=== PATIENT | female | born 1945 | race Caucasian/White ===

== ENCOUNTER 2017-04-18 11:21 | Emergency (ER) | payer OTHER ==
[2017-04-18 11:26] VITALS: O2SAT 95
--- NOTE | 2017-04-18 11:59 | EDPHY ---
HPI/HX/ROS/PE/MDM Narrative: CHIEF COMPLAINT: "I passed out in my kitchen in the middle of the night and banged my head on the loss prevention agent" HPI: The patient is a 71 y/o female arriving with her for evaluation of a syncopal event early this morning. She has been ill for the last week with a "spasmodic" productive cough and is sleeping poorly. She was briefly evaluated for this and had a negative flu swab. She was up early this morning and was cleaning the kitchen when she began to feel faint. She tried to sit down, but lost consciousness and woke up on the floor. She then crawled down the hallway to her and got back into bed. She developed cold sweat while lying in bed, but was able to fall back asleep. When she awoke this morning she saw blood on her pillow and felt a cut on her head so she went to urgent care, which then referred her here. She denies headache, neck or back pain, weakness, paresthesias, or other complaints. She has a history of vasovagal syncopes in the past and says this episode felt exactly the same. She takes a daily baby aspirin and denies cardiac disease or arrhythmia history. REVIEW OF SYSTEMS: Aside from elements discussed in the HPI, a comprehensive 10-point review of systems was reviewed and is negative. PMH: 1. Hypertension 2. Hyperlipidemia 3. Vasovagal syncope SOCIAL HISTORY: Lives at home with , who is at bedside. PHYSICAL EXAM: General:Patient is alert, in no acute distress. Head: 2cm laceration to left occiput with dried blood. ENT:Eyes are normal to inspection. ENT inspection normal. Neck: Normal inspection. Full range of motion. Respiratory:No respiratory distress. Breath sounds normal bilaterally. Cardiovascular: Regular rate and rhythm. Strong peripheral pulses. Normal cap refill. Abdomen:The abdomen is nontender to palpation. There are no peritoneal signs. Back: Normal to inspection. No tenderness to palpation. Skin: Normal color. No rash. Warm and dry. Extremities: Normal appearance. Full range of motion. Neuro: Oriented x3. Normal motor function. Normal sensory function. ED Course: This is a well-appearing 71 y/o female who presents for evaluation of a syncopal event early this morning causing head strike and scalp laceration. She has a 2cm occipital laceration and nonfocal neuro exam. She takes an 81mg aspirin daily, but no anticoagulants. Due to age and loss of consciousness with head trauma, plan for head CT to rule out acute intracranial process. Plan for IV, labs, EKG for standard syncope evaluation, and wound care. The 12 lead EKG was interpreted by myself. Sinus mechanism. See hard copy and/ or "tracemaster" electronic copy for interpretation. Head CT negative for acute process. Procedure: Laceration repair. Verbal consent was obtained from the patient. The linear 2cm laceration on the right occiput was cleaned with standard ED protocol. There were no deep structures involved. The wound was repaired with Dermabond. The wound repair was simple. The procedure was performed by myself, Sukumar. Patient has been coughing frequently for a while, which is causing her some difficulty sleeping. Offered chest x-ray to evaluate this, which she agreed to. Chest x-ray is negative. Reassessed patient and discussed work up with her. She is comfortable being discharged home. Standard care and follow up instructions discussed. Return precautions given. MDM: This is an elderly patient who presents after syncopal episode last night resulting in head injury. Thankfully, CT head is negative for skull fracture or intracranial bleed. Workup is negative for obvious etiology of syncope-there is no evidence of arrhythmia or acute coronary syndrome-I suspect that given the history of vasovagal syncope which patient states presented very similar to this, that this is the likely etiology. Patient is comfortable with plan to go home. She was offered admission but declines. - Data Points Imaging Results: Imaging Impressions Head CT 04/18/17 12:01 Impression: Negative noncontrast CT of the head with no intracranial posttraumatic sequela identified. Results called and discussed with Fabrizio Patino MD on 04/18/2017 at 12:40 Imaging: Discussed imaging studies w/ score caller Radiologist, I viewed and interpreted images myself Laboratory Results: Laboratory Results 04/18/17 11:55 04/18/17 11:55 04/18/17 04/18/17 11:55 11:55 WBC 5.05 10^3/uL 10^3/uL (3.80-9.50) RBC 3.93 10^6/uL L 10^6/uL (4.18-5.33) Hgb 13.2 g/dL g/dL (12.6-16.3) Hct 38.2 % % (38.0-47.0) MCV 97.2 fL fL (81.5-99.8) MCH 33.6 pg pg (27.9-34.1) MCHC 34.6 g/dL g/dL (32.4-36.7) RDW 12.4 % % (11.5-15.2) Plt Count 165 10^3/uL 10^3/uL (150-400) MPV 9.5 fL fL (8.7-11.7) Neut % (Auto) 67.5 % % (39.3-74.2) Lymph % (Auto) 20.4 % % (15.0-45.0) [place] % (Auto) 10.9 % % (4.5-13.0) Eos % (Auto) 0.6 % % (0.6-7.6) Baso % (Auto) 0.4 % % (0.3-1.7) Nucleat RBC Rel Count 0.0 % % (0.0-0.2) Absolute Neuts (auto) 3.41 10^3/uL 10^3/uL (1.70-6.50) Absolute Lymphs (auto) 1.03 10^3/uL 10^3/uL (1.00-3.00) Absolute Monos (auto) 0.55 10^3/uL 10^3/uL (0.30-0.80) Absolute Eos (auto) 0.03 10^3/uL 10^3/uL (0.03-0.40) Absolute Basos (auto) 0.02 10^3/uL 10^3/uL (0.02-0.10) Absolute Nucleated RBC 0.00 10^3/uL 10^3/uL (0-0.01) Immature Gran % 0.2 % % (0.0-1.1) Immature Gran # 0.01 10^3/uL 10^3/uL (0.00-0.10) Sodium 146 mEq/L H mEq/L (135-145) Potassium 4.3 mEq/L mEq/L (3.5-5.2) Chloride 111 mEq/L H mEq/L (97-110) Carbon Dioxide 21 mEq/l L mEq/l (22-31) Anion Gap 14 mEq/L mEq/L (8-16) BUN 21 mg/dL mg/dL (7-23) Creatinine 1.2 mg/dL H mg/dL (0.6-1.0) Estimated GFR 44 Glucose 135 mg/dL H mg/dL (70-100) Calcium 9.2 mg/dL mg/dL (8.5-10.4) Troponin I < 0.012 ng/mL ng/mL (0.000-0.034) General Time Seen by Provider: 04/18/17 11:45 Initial Vital Signs: Initial Vital Signs Temperature (C) 37.2 C 04/18/17 11:22 Heart Rate 83 04/18/17 11:22 Respiratory Rate 18 04/18/17 11:22 Blood Pressure 139/88 H 04/18/17 11:22 O2 Sat (%) 95 04/18/17 11:22 O2 Delivery Mode Room Air Allergies/Adverse Reactions: No Known Allergies Allergy (Unverified 04/18/17 11:26) Home Medications: Medication Instructions Recorded Diltiazem [Cardizem 60 MG (*)] 60 mg PO 04/18/17 Gabapentin [Neurontin 300 MG (*)] 300 mg PO HS 04/18/17 Lisinopril [Zestril 20 mg (*)] 20 mg PO 04/18/17 Sertraline HCl [Zoloft 25mg (*)] 25 mg PO DAILY 04/18/17 Topiramate [Topamax] 25 mg PO 04/18/17 Departure - Departure Disposition: Home, Routine, Self-Care Clinical Impression: Syncope, Occipital scalp laceration, Head injury Condition: Good Instructions: Laceration (ED), Syncope (ED), Head Injury (ED) Additional Instructions: 1. Glue will dissolve over time. Do not scrub the area. Okay to clean gently with soap and water. 2. Follow up with your primary care provider for unimproved symptoms over the next few days. 3. Return to the ED for fainting, weakness, lightheadedness, severe headache, weakness, numbness, vision changes, chest pain, shortness of breath, or other worsening of condition. Referrals: Radha Bustos [employer]ID[facility] [employer] COORDINATOR [Primary Care Provider] - As per Instructions Report Scribed for: Fabrizio M Whitling Report Scribed by: Lisa Barber Date of Report: 04/18/17 Time of Report: 11:59 Physician Review and Approval Statement: Portions of this note were transcribed by an ED scribe. I personally performed the history, physical exam, and medical decision making; and confirm the accuracy of the information in the transcribed note.
--- NOTE | 2017-04-18 12:06 | CPEKG ---
Heart Rate: 73 RR Interval: 822 P-R Interval: 164 QRSD Interval: 76 QT Interval: 392 QTC Interval: 432 P Nikolai: 61 QRS Nikolai: 52 T Wave Nikolai: 38 EKG Severity - NORMAL ECG - EKG Impression: SINUS RHYTHM Electronically Signed By: Holden Middleton 20-Apr-2017 06:08:17
[2017-04-18 12:13] LABS: PLATELET COUNT 165 10^3/uL (150-400)
[2017-04-18] MEDS ORDERED: SKIN ADHESIVE (DERMABOND) 1 EACH TP ONE (13:03)
[2017-04-18 13:25] VITALS: PULSE 68
[2017-04-18 13:41] VITALS: BP 125/81; RESP 18; TEMP 98.4
== END 2017-04-18 13:40 | disposition home or self-care (01) ==
PROC: 0HQ0XZZ Repair Scalp Skin, External Approach (ICD-10-PCS; principal; 2017-04-18)
DX: S01.01XA Laceration without foreign body of scalp, initial encounter (principal); I10 Essential (primary) hypertension; R55 Syncope and collapse; W18.39XA Other fall on same level, initial encounter; Y99.8 Other external cause status

== ENCOUNTER → 2018-03-19 | Outpatient (CLI) | payer OTHER | LOC: BMCIMAGING 14:44 | PROVIDERS: ATTEND Nurse Practitioner Adult Health | DX: Z12.31 Encounter for screening mammogram for malignant neoplasm of breast (principal); Z80.3 Family history of malignant neoplasm of breast ==

== ENCOUNTER → 2018-07-05 | Outpatient (CLI) | payer OTHER ==
[~2018-07-05] MED LIST: IOPAMIDOL (ISOVUE-300) 100 ML BTL ONE
== END ==
LOC: FIMAGING 10:51
PROVIDERS: ATTEND Urology
DX: N13.5 Crossing vessel and stricture of ureter without hydronephrosis (principal)
CPT/HCPCS: 74178; Q9967; 82565-PO

== ENCOUNTER 2018-07-19 17:39 | Emergency (ER) | payer OTHER ==
[2018-07-19] MEDS ORDERED: NS 1,000 ML IV ONE ×2 (17:51→18:43)
--- NOTE | 2018-07-19 18:19 | EDPHY ---
H & P Stated Complaint: Presyncope, recently diagnosed with possible UTI Time Seen by Provider: 07/19/18 17:51 HPI/ROS: CHIEF COMPLAINT: Presyncope HISTORY OF PRESENT ILLNESS: The patient presents the ED after she experienced an episode of presyncope at home after having a small bowel movement. The patient does have a history of vasovagal episodes and recognize that she may be about to have a true syncopal event. She was able to lie flat on the floor and did not truly lose consciousness. She was profoundly weak and had some difficult time getting up. She is scheduled to travel outside the country and presents to the emergency department for evaluation. The patient's history is significant for recently diagnosed chronic bladder inflammation. She was at urgent care earlier today and diagnosed with a possible UTI and prescribed antibiotics which she has not yet taking at. The patient does have chronic urinary frequency and dysuria which is not changed. She has no complaints of fever or flank pain. She denies any chest pain or shortness of breath. The patient does have a history of ocular migraines did have a headache last night with a transient episode of vision loss. She denies any acute neurologic symptoms or headache currently. Patient does report that she had decreased oral intake today and that she was quite active. REVIEW OF SYSTEMS: A comprehensive 10 point review of systems is otherwise negative aside from elements mentioned in the history of present illness. Source: Patient Exam Limitations: No limitations - Personal History Current Tetanus Diphtheria and Acellular Pertussis (TDAP): Yes - Medical/Surgical History Hx Asthma: No Hx Chronic Respiratory Disease: No Hx Diabetes: No Hx Cardiac Disease: No Hx Renal Disease: No Hx Cirrhosis: No Hx Alcoholism: No Hx HIV/AIDS: No Hx Splenectomy or Spleen Trauma: No Other PMH: htn. essential tremor. BLADDER /KIDNEY ISSUESWITH EXP SURG - Social History Smoking Status: Never smoked - Physical Exam Exam: General Appearance: Alert, no distress Eyes: Pupils equal and round no pallor or injection ENT, Mouth: Mucous membranes moist Respiratory: There are no retractions, lungs are clear to auscultation Cardiovascular: Regular rate and rhythm Gastrointestinal: Abdomen is soft and nontender, no masses, bowel sounds normal Neurological: A&O, no visual field deficit, normal motor function, normal sensory exam, normal cranial nerves Skin: Warm and dry, no rashes Musculoskeletal: Neck is supple nontender Extremities: symmetrical, full range of motion Psychiatric: Patient is oriented X 3, there is no agitation Constitutional: Initial Vital Signs Temperature (C) 36.4 C 07/19/18 17:45 Heart Rate 73 07/19/18 17:45 Respiratory Rate 18 07/19/18 17:45 Blood Pressure 130/102 H 07/19/18 17:45 O2 Sat (%) 97 07/19/18 17:45 O2 Delivery Mode Room Air Allergies/Adverse Reactions: No Known Allergies Allergy (Verified 07/19/18 17:44) Home Medications: Medication Instructions Recorded Diltiazem [Cardizem 60 MG (*)] 60 mg PO 04/18/17 Gabapentin [Neurontin 300 MG (*)] 300 mg PO HS 04/18/17 Lisinopril [Zestril 20 mg (*)] 20 mg PO 04/18/17 Sertraline HCl [Zoloft 25mg (*)] 25 mg PO DAILY 04/18/17 Topiramate [Topamax] 25 mg PO 04/18/17 Abx For Uti 07/19/18 Ondansetron Odt [Zofran Odt] 4 mg PO Q4PRN PRN #20 tab 07/19/18 Medical Decision Making - Diagnostics EKG Interpretation: EKG: Complete interpretation has been separately recorded in the [facility] archive. Summary impression: Sinus rhythm, rate 61 ED Course/Re-evaluation: The patient presents to the ED after a likely vasovagal episode at home. The patient does report symptoms of decreased intake today. She arrives with stable vital signs, she is neurologically intact. Her EKG demonstrates no evidence of ischemia. She does have slightly dry mucous membranes. The patient had an IV established. She received 2 L of normal saline in the emergency department. The patient's laboratory studies are unremarkable. Aside from the development of mild nausea the patient remained asymptomatic throughout her stay in the emergency department. The patient was given some Zofran for her nausea without significant improvement. I re-evaluated the patient at 8:40 p.m.. She was offered admission to the hospital in a setting of her ongoing nausea however prefers to go home. She is now ambulatory with a normal blood pressure and heart rate without any recurrent symptoms of presyncope. The patient will be given medication she was prescribed today for urinary tract infection. The patient is given a prescription for Zofran. Differential Diagnosis: Differential diagnosis considered includes vasovagal episode, pyelonephritis, sepsis, metabolic derangement, urinary tract infection, dehydration - Data Points Laboratory Results: Laboratory Results 07/19/18 18:05 07/19/18 18:05 07/19/18 07/19/18 07/19/18 18:10 18:05 18:05 WBC 5.18 10^3/uL 10^3/uL (3.80-9.50) RBC 3.72 10^6/uL L 10^6/uL (4.18-5.33) Hgb 12.1 g/dL L g/dL (12.6-16.3) Hct 36.3 % L % (38.0-47.0) MCV 97.6 fL fL (81.5-99.8) MCH 32.5 pg pg (27.9-34.1) MCHC 33.3 g/dL g/dL (32.4-36.7) RDW 12.6 % % (11.5-15.2) Plt Count 229 10^3/uL 10^3/uL (150-400) MPV 9.6 fL fL (8.7-11.7) Neut % (Auto) 49.4 % % (39.3-74.2) Lymph % (Auto) 37.6 % % (15.0-45.0) [place] % (Auto) 9.7 % % (4.5-13.0) Eos % (Auto) 2.7 % % (0.6-7.6) Baso % (Auto) 0.4 % % (0.3-1.7) Nucleat RBC Rel Count 0.0 % % (0.0-0.2) Absolute Neuts (auto) 2.56 10^3/uL 10^3/uL (1.70-6.50) Absolute Lymphs (auto) 1.95 10^3/uL 10^3/uL (1.00-3.00) Absolute Monos (auto) 0.50 10^3/uL 10^3/uL (0.30-0.80) Absolute Eos (auto) 0.14 10^3/uL 10^3/uL (0.03-0.40) Absolute Basos (auto) 0.02 10^3/uL 10^3/uL (0.02-0.10) Absolute Nucleated RBC 0.00 10^3/uL 10^3/uL (0-0.01) Immature Gran % 0.2 % % (0.0-1.1) Immature Gran # 0.01 10^3/uL 10^3/uL (0.00-0.10) Sodium 137 mEq/L mEq/L (135-145) Potassium 4.2 mEq/L mEq/L (3.5-5.2) Chloride 108 mEq/L mEq/L (97-110) Carbon Dioxide 21 mEq/l L mEq/l (22-31) Anion Gap 8 mEq/L mEq/L (6-14) BUN 21 mg/dL mg/dL (7-23) Creatinine 1.2 mg/dL H mg/dL (0.6-1.0) Estimated GFR 44 Glucose 106 mg/dL H mg/dL (70-100) Calcium 9.2 mg/dL mg/dL (8.5-10.4) POC Troponin I 0.01 ng/mL ng/mL (0.00-0.08) Medications Given: Discontinued Medications Sodium Chloride (Ns) 1,000 mls @ 0 mls/hr IV EDNOW ONE; Wide Open PRN Reason: Protocol Stop: 07/19/18 17:52 Last Admin: 07/19/18 18:06 Dose: 1,000 mls Sodium Chloride (Ns) 1,000 mls @ 0 mls/hr IV EDNOW ONE; Wide Open PRN Reason: Protocol Stop: 07/19/18 18:44 Last Admin: 07/19/18 19:06 Dose: 1,000 mls Ondansetron HCl (Zofran) 4 mg IVP EDNOW ONE Stop: 07/19/18 19:04 Last Admin: 07/19/18 19:05 Dose: 4 mg Point of Care Test Results: Chemistry 07/19/18 18:10 POC Troponin I 0.01 ng/mL ng/mL (0.00-0.08) Departure - Departure Disposition: Home, Routine, Self-Care Clinical Impression: Vasovagal attack, Dehydration, Urinary tract infection Condition: Good Instructions: Dehydration (ED) Additional Instructions: 1. Zofran as needed for nausea. 2. Return to the emergency department for any recurrent symptoms or other concerns. 3. Begin antibiotics as prescribed by your regular physician. 4. Please try and increase your fluid intake as mild dehydration likely contributed to your symptoms today. Referrals: Radha Bustos NP [Primary Care Provider] - As per Instructions
--- NOTE | 2018-07-19 18:20 | CPEKG ---
Test Reason : OPEN Blood Pressure : / mmHG Vent. Rate : 061 BPM Atrial Rate : 061 BPM P-R Int : 160 ms QRS Dur : 080 ms QT Int : 452 ms P-R-T Axes : 048 060 059 degrees QTc Int : 456 ms Sinus rhythm Confirmed by Joshua Salas ([id number]) on 07/19/2018 6:19:42 PM Referred By: Joshua Salas Confirmed By:Joshua Salas
[2018-07-19 18:29] LABS: PLATELET COUNT 229 10^3/uL (150-400)
[2018-07-19] MEDS ORDERED: ONDANSETRON 4 MG/2 ML VIAL IVP ONE (19:03)
[2018-07-19] MEDS ORDERED: ONDANSETRON 4MG PREPACK#2 BTL TAKEHOME ONE (20:38)
[2018-07-19 20:50] VITALS: BP 100/65
== END 2018-07-19 20:51 | disposition home or self-care (01) ==
DX: R55 Syncope and collapse (principal); E86.0 Dehydration; N39.0 Urinary tract infection, site not specified; I10 Essential (primary) hypertension
CPT/HCPCS: 93005; 96361; 96374; 99284; J2405; 84484-ER

== ENCOUNTER 2018-08-26 22:25 | Emergency (ER) | payer OTHER | END 2018-08-27 00:44 | disposition home or self-care (01) ==